=== PATIENT | female | born 1995 | race Two or more races ===

== ENCOUNTER 2018-12-23 22:54 | Emergency (ER) | payer OTHER ==
[~2018-12-23] VITALS: Ht 167.6 cm; Wt 124.3 kg
[~2018-12-23 22:54] MED LIST: CARAFATE SU1 G/10 ML PO; CLEOCIN HCL300 MG PO; ERYTHROMYCIN 2%30 GM TP; INTESTINEX680 MG PO; LO/OVRAL-281 TAB; MACROBID 100 M100 MG PO; PROVENTIL3 ML/2.5 M IH; SEPTRA DS TABLE1 TAB PO; TRAM1TAB98 PO; TUSSIONEX PENNKI5 ML PO; ZITHROMAX500 MG PO; ZOFRAN8 MG PO
== END 2018-12-24 05:55 | disposition home or self-care (01) ==
LOC: ER 22:54
DX: N39.0 Urinary tract infection, site not specified (principal); R10.31 Right lower quadrant pain

== ENCOUNTER 2019-04-19 18:59 | Emergency (ER) | payer OTHER ==
[~2019-04-19] VITALS: Ht 170.2 cm; Wt 117.9 kg
[2019-04-20] MEDS ORDERED: ZOFRAN4 MG PO (03:18)
[2019-04-20] MEDS ORDERED: INTESTINEX680 M1 PO (03:18)
[2019-04-20] MEDS ORDERED: PEPCID40 MG PO (03:18)
== END 2019-04-20 03:27 | disposition home or self-care (01) ==
LOC: ER 18:59
DX: K52.9 Noninfective gastroenteritis and colitis, unspecified (principal)

== ENCOUNTER 2019-05-11 12:27 | Emergency (ER) | payer OTHER ==
[~2019-05-11] VITALS: Ht 170.2 cm; Wt 117.9 kg
[~2019-05-11 12:27] MED LIST changes: +INTESTINEX680 M1 PO; +PEPCID40 MG PO; +ZOFRAN4 MG PO
[2019-05-11] MEDS ORDERED: KETO10TA2 PO (13:46)
[2019-05-11] MEDS ORDERED: FLAGYL500MG PO (13:46)
== END 2019-05-11 13:56 | disposition home or self-care (01) ==
LOC: ER 12:27
DX: L02.11 Cutaneous abscess of neck (principal)

== ENCOUNTER 2019-05-12 00:16 | Inpatient (IN) | payer OTHER ==
[~2019-05-12] VITALS: Ht 170.2 cm; Wt 117.9 kg
[~2019-05-12 00:16] MED LIST changes: +FLAGYL500MG PO; +KETO10TA2 PO
--- NOTE | 2019-05-12 00:25 | NUR ---
FEMINA DE 23 ANOS,ALERTA,ORIENTADA EN [place] ESFERAS,AMBULANDO SIN DIFICULTAD EN COMPANIA DE FAMILIAR. MADRE REFIERE TRAER A HIJA YA QUE ALEXIS QUE TIENE REACCION ADVERSA A MEDICAMENTOS ADMINISTRADOS EN EL KELI DE HOY EN ER, YA QUE VINO POR DOLOR EN RUTH Y BRAZO DERECHO. LE ADMINISTRATRON FLAGYL,TORADOL,ZOFRAN;PACIENTE PRESENTA NAUSEAS,ESCALOSFRIOS,FIEBRE.
--- NOTE | 2019-05-12 01:20 | NUR ---
PTE EVALUADA POR EL DR ROXANA MALLORY [place]. MR Jossie GARCIA ORIENTA SOBRE EL MISMO, LO CUAL REFIERE ENTENDER, REALIZA PRUEBAS DE LABORATORIOS Y ADMINISTRA MEDICAMENTOS CARLY ORDEN MEDICA Y SIGUIENDO MEDIDAS ASEPTICAS.
--- NOTE | 2019-05-12 07:10 | NUR ---
SE RECIBE PACIENTE ALERTA Y ORIENTADA EN [place] ESFERAS, EN [place] CON BARANDAS ELEVADAS. SE OBSERVA VENOPUNCION BRAD DE EDEMA Y ENROJECIMIENTO, PATENTE,HEPARINE LOCK. SE ORIENTA SOBRE CONSULTA CON ,VERBALIZA ENTENDER. SE LAZARUS BAJO OBSERVACION CONTINUA, CON BARANDAS ELEVADAS Y TIMBRE ACCESIBLE.
== END 2019-05-18 12:34 | disposition home or self-care (01) | DRG 603 ==
LOC: ER 00:16 → SEC-K 08:44 → MEDJ 08:44
PROVIDERS: ADMIT Internal Medicine
PROC: BW2FY0Z Computerized Tomography (CT Scan) of Neck using Other Contrast, Unenhanced and Enhanced (ICD-10-PCS; principal; 2019-05-12)
PROC: BT4JZZZ Ultrasonography of Kidneys and Bladder (ICD-10-PCS; 2019-05-17)
PROC: BB24ZZZ Computerized Tomography (CT Scan) of Bilateral Lungs (ICD-10-PCS; 2019-05-17)
DX: L03.221 Cellulitis of neck (principal); N39.0 Urinary tract infection, site not specified; N17.8 Other acute kidney failure; J90 Pleural effusion, not elsewhere classified; K76.0 Fatty (change of) liver, not elsewhere classified; L73.2 Hidradenitis suppurativa; E66.09 Other obesity due to excess calories; K52.89 Other specified noninfective gastroenteritis and colitis; R31.0 Gross hematuria; E28.2 Polycystic ovarian syndrome; R59.0 Localized enlarged lymph nodes

== ENCOUNTER 2022-09-01 19:02 | Emergency (ER) | payer OTHER ==
[~2022-09-01] VITALS: Ht 170.2 cm; Wt 127.0 kg
== END 2022-09-01 21:51 | disposition home or self-care (01) ==
LOC: ER 19:02
DX: G50.0 Trigeminal neuralgia (principal); Z88.2 Allergy status to sulfonamides; Z88.1 Allergy status to other antibiotic agents

== ENCOUNTER 2022-10-28 00:39 | Emergency (ER) | payer OTHER ==
[~2022-10-28] VITALS: Ht 170.2 cm; Wt 136.1 kg
== END 2022-10-28 02:32 | disposition home or self-care (01) ==
LOC: ER 00:39
DX: G50.0 Trigeminal neuralgia (principal); Z88.2 Allergy status to sulfonamides; Z88.1 Allergy status to other antibiotic agents; Z88.6 Allergy status to analgesic agent

== ENCOUNTER 2022-11-15 22:16 | Emergency (ER) | payer OTHER ==
[~2022-11-15] VITALS: Ht 170.2 cm; Wt 124.7 kg
[2022-11-15] MEDS ORDERED: NEURONTIN300 MG PO (22:52)
== END 2022-11-16 00:39 | disposition home or self-care (01) ==
LOC: ER 22:16
DX: G50.0 Trigeminal neuralgia (principal); Z88.2 Allergy status to sulfonamides; Z88.8 Allergy status to other drugs, medicaments and biological substances

== ENCOUNTER 2023-03-08 09:23 | Emergency (ER) | payer OTHER ==
[~2023-03-08] VITALS: Ht 170.2 cm; Wt 131.5 kg
[~2023-03-08 09:23] MED LIST changes: +NEURONTIN300 MG PO
[2023-03-08 12:14] LABS: HEMATOCRIT 29.2 % (36.0-45.00); MEAN CORPUSCULAR HEMOGLOBIN 19.8 pg (27.00-32.0); MEAN CORPUSCULAR HGB CONC 31.1 g/dl (32.0-36.0); PLATELET COUNT 183 K/uL (150-450); RED BLOOD COUNT 4.58 M/uL (4.00-6.00)
[2023-03-08 12:17] LABS: HEMOGLOBIN 9.1 g/dL (12.0-15.00); MEAN CELL VOLUME 63.7 fL (80.00-100.00); RED CELL DISTRIBUTION WIDTH 19.3 % (11.5-14.5)
== END 2023-03-08 13:52 | disposition home or self-care (01) ==
LOC: ER 09:23
PROVIDERS: Emergency Medicine
DX: K21.9 Gastro-esophageal reflux disease without esophagitis (principal); A05.9 Bacterial foodborne intoxication, unspecified; E28.2 Polycystic ovarian syndrome; Z88.2 Allergy status to sulfonamides; Z88.8 Allergy status to other drugs, medicaments and biological substances

== ENCOUNTER 2023-06-11 22:23 | Emergency (ER) | payer OTHER ==
[~2023-06-11] VITALS: Ht 170.2 cm; Wt 144.2 kg
[2023-06-11] MEDS ORDERED: NEURONTIN300 MG (22:41)
[2023-06-11] MEDS ORDERED: CYMBALTA30 MG (22:41)
[2023-06-11] MEDS ORDERED: KETO10TA2 (22:42)
[2023-06-11] MEDS ORDERED: FLEXERIL (22:44)
[2023-06-11] MEDS ORDERED: CYMBALTA30 MG PO (22:55)
[2023-06-11] MEDS ORDERED: KETO10TA2 PO (22:55)
[2023-06-11] MEDS ORDERED: NEURONTIN300 MG PO (22:55)
== END 2023-06-11 23:11 | disposition home or self-care (01) ==
LOC: ER 22:23
DX: G50.0 Trigeminal neuralgia (principal); Z88.2 Allergy status to sulfonamides; Z88.8 Allergy status to other drugs, medicaments and biological substances

== ENCOUNTER 2023-08-27 00:41 | Emergency (ER) | payer OTHER ==
[~2023-08-27] VITALS: Ht 170.2 cm; Wt 117.9 kg
[~2023-08-27 00:41] MED LIST changes: +CYMBALTA30 MG; +CYMBALTA30 MG PO; +FLEXERIL; +KETO10TA2; +NEURONTIN300 MG
[2023-08-27] MEDS ORDERED: MEPERIDINE HCL/PF 50 MG/ML VIAL IM STA (02:33)
[2023-08-27] MEDS ORDERED: RINGERS SOLUTION,LACTATED 1,000 ML IV ONE (02:45)
[2023-08-27 03:22] LABS: HEMATOCRIT 30.6 % (36.0-45.00); MEAN CELL VOLUME 71.1 fL (80.00-100.00); MEAN CORPUSCULAR HEMOGLOBIN 22.3 pg (27.00-32.0); MEAN CORPUSCULAR HGB CONC 31.3 g/dl (32.0-36.0); PLATELET COUNT 201 K/uL (150-450); RED CELL DISTRIBUTION WIDTH 17.5 % (11.5-14.5)
[2023-08-27 03:24] LABS: HEMOGLOBIN 9.6 g/dL (12.0-15.00)
[2023-08-27 03:37] LABS: INR 0.99; PARTIAL THROMBOPLASTIN TIME 28.6 SECONDS (22.0-34.0); PROTHROMBIN TIME 10.4 SECONDS (9.0-11.5)
[2023-08-27 04:04] LABS: ALBUMIN 3.5 gm/dL (3.4-5.0); ALKALINE PHOSPHATASE 63 U/L (50-136); ALT/SGPT 31 U/L (12-78); ANION GAP 7 (10.0-20.0); AST/SGOT 30 U/L (15-37); BILIRUBIN TOTAL 0.53 mg/dL (0.3-1.2); BLOOD UREA NITROGEN 9 mg/dL (7-18); BUN CREA RATIO 13 (7.0-25.0); CALCIUM 8.4 mg/dL (8.5-10.1); CARBON DIOXIDE 28 mEq/L (21-32); CHLORIDE 107 mmol/L (98-107); CREATININE SERUM 0.71 mg/dL (0.55-1.02); GFR 98.75; GLOBULINA 3.7 G/DL (2.4-3.5); GLUCOSE FASTING 96 mg/dL (65-100); OSMOLALITY SERUM 274 MOSM/KG (275-295); POTASSIUM 4.07 mEq/L (3.5-5.1); SODIUM 138 mmol/L (136-145); TOTAL PROTEIN 7.2 gm/dL (6.4-8.2)
[2023-08-27 04:08] LABS: HCG QUANTITATIVE < 1 mUI/mL (1-3)
[2023-08-27 04:45] LABS: URINE APPEARANCE Cloudy; URINE BILIRRUBIN Negative (NEGATIVE); URINE BLOOD Large; URINE COLOR Orange; URINE GLUCOSE Negative (NEGATIVE); URINE LEUKOCYTE Small; URINE NITRATE Negative
[2023-08-27 04:49] LABS: URINE BACTERIA 2829.9 uL (0.0-1933); URINE EPITHELIAL CELLS 54.2 uL (0.0-38.8); URINE RBC 3929.9 uL (0.0-20.8); URINE WBC 52.1 uL (0.0-23.2)
[2023-08-27 05:28] LABS: URINE PROTEIN 100 (NEGATIVE)
[2023-08-27] MEDS ORDERED: KETOROLAC TROMETHAMINE 30 MG VIAL IV STA (06:25)
[2023-08-27] MEDS ORDERED: CIPROFLOXACIN IN 5 % DEXTROSE 400 MG/200 ML PIGGYBAG IV STA (06:26)
[2023-08-27] MEDS ORDERED: ONDANSETRON HCL 2 MG/ML VIAL IV ONE (07:30)
== END 2023-08-27 09:59 | disposition home or self-care (01) ==
LOC: ER 00:41
PROVIDERS: General Practice
DX: N93.8 Other specified abnormal uterine and vaginal bleeding (principal); Z88.2 Allergy status to sulfonamides; E28.2 Polycystic ovarian syndrome

== ENCOUNTER 2024-02-29 08:36 | Emergency (ER) | payer OTHER ==
[~2024-02-29] VITALS: Ht 170.2 cm; Wt 145.1 kg
[~2024-02-29 08:36] MED LIST changes: +MELOXICAM15 MG PO; +NORFLEX100MG PO
[2024-02-29] MEDS ORDERED: DEXAMETHASONE SODIUM PHOSPHATE 4 MG/ML VIAL IM ONE (09:45)
[2024-02-29] MEDS ORDERED: DEXAMETHASONE SODIUM PHOSPHATE 4 MG/ML VIAL ONE (09:48)
[2024-02-29] MEDS ORDERED: MEDROLPACK PO (15:12)
== END 2024-02-29 15:36 | disposition home or self-care (01) ==
LOC: ER 08:37
DX: R20.0 Anesthesia of skin (principal); M54.89 Other dorsalgia; Z88.2 Allergy status to sulfonamides; Z88.8 Allergy status to other drugs, medicaments and biological substances; E03.9 Hypothyroidism, unspecified

== ENCOUNTER 2024-06-25 23:06 | Emergency (ER) | payer OTHER ==
[~2024-06-25] VITALS: Ht 170.2 cm; Wt 142.9 kg
[~2024-06-25 23:06] MED LIST changes: +MEDROLPACK PO
[2024-06-26] MEDS ORDERED: 0.9 % SODIUM CHLORIDE 1,000 ML IV SCH (00:45)
[2024-06-26] MEDS ORDERED: CIPROFLOXACIN IN 5 % DEXTROSE 400 MG/200 ML PIGGYBAG IV ONE ×2 (00:45→00:53)
[2024-06-26 01:51] LABS: HEMATOCRIT 35.3 % (36.0-45.00); HEMOGLOBIN 11.3 g/dL (12.0-15.00); MEAN CELL VOLUME 70.6 fL (80.00-100.00); MEAN CORPUSCULAR HEMOGLOBIN 22.6 pg (27.00-32.0); PLATELET COUNT 201 K/uL (150-450); RED CELL DISTRIBUTION WIDTH 17.5 % (11.5-14.5)
[2024-06-26 02:13] LABS: ALBUMIN 3.9 gm/dL (3.4-5.0); BILIRUBIN TOTAL 1.09 mg/dL (0.3-1.2); CREATININE SERUM 0.82 mg/dL (0.55-1.02); GFR 83.01; GLOBULINA 4.3 G/DL (2.4-3.5); POTASSIUM 3.84 mEq/L (3.5-5.1); TOTAL PROTEIN 8.2 gm/dL (6.4-8.2)
[2024-06-26 02:55] LABS: PH,URINE 6.5 (5.0-8.0); URINE APPEARANCE Clear; URINE BILIRRUBIN Negative (NEGATIVE); URINE BLOOD Large; URINE COLOR Yellow; URINE GLUCOSE Negative (NEGATIVE); URINE KETONE Negative (NEGATIVE); URINE LEUKOCYTE Small; URINE NITRATE Negative; URINE PROTEIN 30 (NEGATIVE)
[2024-06-26 02:59] LABS: URINE BACTERIA 3537.2 uL (0.0-1933); URINE EPITHELIAL CELLS 19.4 uL (0.0-38.8); URINE RBC 119.4 uL (0.0-20.8); URINE WBC 125.8 uL (0.0-23.2)
[2024-06-26 03:00] LABS: URINE CAST 0.29 uL (0.0-1.40)
[2024-06-26] MEDS ORDERED: CIPRO500 MG PO (03:22)
== END 2024-06-26 04:25 | disposition home or self-care (01) ==
LOC: ER 23:08
PROVIDERS: General Practice
DX: N39.0 Urinary tract infection, site not specified (principal); R10.9 Unspecified abdominal pain; Z88.1 Allergy status to other antibiotic agents; Z88.2 Allergy status to sulfonamides; Z88.6 Allergy status to analgesic agent

== ENCOUNTER 2024-10-06 17:33 | Emergency (ER) | payer OTHER ==
[~2024-10-06] VITALS: Ht 170.2 cm; Wt 145.1 kg
[~2024-10-06 17:33] MED LIST changes: +CIPRO500 MG PO
[2024-10-06 18:50] LABS: HEMATOCRIT 31.5 % (36.0-45.00); HEMOGLOBIN 9.9 g/dL (12.0-15.00); MEAN CELL VOLUME 69.8 fL (80.00-100.00); MEAN CORPUSCULAR HEMOGLOBIN 21.9 pg (27.00-32.0); MEAN CORPUSCULAR HGB CONC 31.4 g/dl (32.0-36.0); PLATELET COUNT 215 K/uL (150-450); RED BLOOD COUNT 4.51 M/uL (4.00-6.00); RED CELL DISTRIBUTION WIDTH 16.5 % (11.5-14.5)
[2024-10-06 19:12] LABS: INR 1.04; PROTHROMBIN TIME 11.3 SECONDS (9.0-11.5)
[2024-10-06 19:20] LABS: ALBUMIN 3.7 gm/dL (3.4-5.0); ALKALINE PHOSPHATASE 66 U/L (50-136); ALT/SGPT 37 U/L (12-78); ANION GAP 9 (10.0-20.0); AST/SGOT 28 U/L (15-37); BILIRUBIN TOTAL 0.96 mg/dL (0.3-1.2); BLOOD UREA NITROGEN 11 mg/dL (7-18); BUN CREA RATIO 14 (7.0-25.0); CALCIUM 8.7 mg/dL (8.5-10.1); CARBON DIOXIDE 29 mEq/L (21-32); CHLORIDE 110 mmol/L (98-107); CREATININE SERUM 0.76 mg/dL (0.55-1.02); GFR 90.62; GLOBULINA 3.4 G/DL (2.4-3.5); GLUCOSE FASTING 93 mg/dL (65-100); OSMOLALITY SERUM 286 MOSM/KG (275-295); POTASSIUM 4.11 mEq/L (3.5-5.1); SODIUM 144 mmol/L (136-145); TOTAL PROTEIN 7.1 gm/dL (6.4-8.2)
[2024-10-06 19:34] LABS: HCG QUANTITATIVE < 1 mUI/mL (1-3)
[2024-10-06] MEDS ORDERED: FUSION PLUS CA1 EACH PO (20:59)
[2024-10-06 21:02] LABS: URINE APPEARANCE Turbid; URINE BILIRRUBIN Small (NEGATIVE); URINE BLOOD Moderate; URINE COLOR Red; URINE GLUCOSE Negative (NEGATIVE); URINE KETONE Negative (NEGATIVE); URINE LEUKOCYTE Moderate; URINE NITRATE Positive; URINE UROBILINOGEN 0.2 E.U./dl
[2024-10-06 21:05] LABS: URINE BACTERIA 1763.7 uL (0.0-1933); URINE EPITHELIAL CELLS 7.5 uL (0.0-38.8); URINE WBC 232.2 uL (0.0-23.2)
[2024-10-06 21:18] LABS: URINE PROTEIN 100 (NEGATIVE); URINE RBC > 10558.9 uL (0.0-20.8)
== END 2024-10-06 21:06 | disposition home or self-care (01) ==
LOC: ER 17:35
PROVIDERS: General Practice
DX: N93.9 Abnormal uterine and vaginal bleeding, unspecified (principal); Z88.1 Allergy status to other antibiotic agents; Z88.2 Allergy status to sulfonamides; Z88.6 Allergy status to analgesic agent

== ENCOUNTER 2024-10-09 19:10 | Emergency (ER) | payer OTHER ==
[~2024-10-09] VITALS: Ht 170.2 cm; Wt 145.1 kg
[~2024-10-09 19:10] MED LIST changes: +FUSION PLUS CA1 EACH PO
[2024-10-09] MEDS ORDERED: PROVERA2.5 MG PO (19:37)
[2024-10-09 21:46] LABS: HEMATOCRIT 29.8 % (36.0-45.00); HEMOGLOBIN 9.4 g/dL (12.0-15.00); MEAN CELL VOLUME 68.9 fL (80.00-100.00); MEAN CORPUSCULAR HEMOGLOBIN 21.8 pg (27.00-32.0); MEAN CORPUSCULAR HGB CONC 31.6 g/dl (32.0-36.0); PLATELET COUNT 235 K/uL (150-450); RED BLOOD COUNT 4.33 M/uL (4.00-6.00)
[2024-10-09] MEDS ORDERED: SPRINTEC 28 DA1 EACH PO (21:56)
[2024-10-09 22:05] LABS: INR 0.97; PARTIAL THROMBOPLASTIN TIME 24.6 SECONDS (22.0-34.0); PROTHROMBIN TIME 10.6 SECONDS (9.0-11.5)
[2024-10-09 22:11] LABS: ALBUMIN 3.7 gm/dL (3.4-5.0); ALKALINE PHOSPHATASE 77 U/L (50-136); ALT/SGPT 30 U/L (12-78); ANION GAP 10 (10.0-20.0); AST/SGOT 30 U/L (15-37); BILIRUBIN TOTAL 0.52 mg/dL (0.3-1.2); BLOOD UREA NITROGEN 7 mg/dL (7-18); BUN CREA RATIO 7 (7.0-25.0); CALCIUM 8.6 mg/dL (8.5-10.1); CARBON DIOXIDE 28 mEq/L (21-32); CHLORIDE 108 mmol/L (98-107); CREATININE SERUM 1.01 mg/dL (0.55-1.02); GFR 65.26; GLOBULINA 3.9 G/DL (2.4-3.5); GLUCOSE FASTING 99 mg/dL (65-100); OSMOLALITY SERUM 281 MOSM/KG (275-295); POTASSIUM 4.22 mEq/L (3.5-5.1); SODIUM 142 mmol/L (136-145); TOTAL PROTEIN 7.6 gm/dL (6.4-8.2)
[2024-10-09] MEDS ORDERED: TRAMADOL HCL 50 MG TABLET PO ONE (22:15)
[2024-10-09 22:17] LABS: HCG QUANTITATIVE < 1 mUI/mL (1-3)
== END 2024-10-09 22:12 | disposition home or self-care (01) ==
LOC: ER 19:11
PROVIDERS: General Practice
DX: E28.2 Polycystic ovarian syndrome (principal); Z88.2 Allergy status to sulfonamides; Z88.8 Allergy status to other drugs, medicaments and biological substances; Z09 Encounter for follow-up examination after completed treatment for conditions other than malignant neoplasm

== ENCOUNTER 2024-11-04 16:05 | Inpatient (IN) | payer OTHER ==
[~2024-11-04] VITALS: Ht 170.2 cm; Wt 145.1 kg
[~2024-11-04 16:05] MED LIST changes: +PROVERA2.5 MG PO; +SPRINTEC 28 DA1 EACH PO
[2024-11-04] MEDS ORDERED: LEVOTHYROXINE25 MCG PO (16:22)
[2024-11-04] MEDS ORDERED: PROVERA2.5 MG (16:22)
--- NOTE | 2024-11-04 16:23 | NUR ---
PTE ALERTA Y ORIENTADA X3 REFIERE TENER [place] VAGINAL HACE 3 MESES, REFIERE TAMBIEN VOMITOS HACE 1 SEMANA CON 2 VOMITOS TAYLOR Y DOLOR DE MANGO. SE ESTEPHANIA SV Y SE UBICA
--- NOTE | 2024-11-04 16:45 | NUR ---
SE ORIENTA PTE SOBRE [place] MEDICO Y REFIERE ENTENDER Y ACEPTAR. SE COLECTAN MUESTRAS DE LAB Y SE NOTIFICA XRAY. SE REALIZA EKG Y SE PRESENTA A MD OSMAR
[2024-11-04 16:56] LABS: BASO % 0.4 % (0.1-1.2); EOS # 0.05 (0.04-0.54); EOS % 0.9 % (0.7-7.0); LYMPH # 1.92 (1.18-3.74); MEAN CORPUSCULAR HEMOGLOBIN 19.8 pg (25.6-32.2); MONO # 0.44 (0.24-0.82); MONO % 7.8 % (4.7-12.5); NEUT # 3.21 (1.56-6.13); NEUT % 56.7 % (34.0-71.1); PLATELET COUNT 279 K/uL (163-369); RED BLOOD COUNT 3.54 M/uL (3.93-5.22); RED CELL DISTRIBUTION WIDTH 17.2 % (11.6-14.4)
[2024-11-04 17:01] LABS: HEMATOCRIT 24.7 % (34.1-44.9)
[2024-11-04 18:44] LABS: ALBUMIN 3.7 gm/dL (3.4-5.0); ALKALINE PHOSPHATASE 62 U/L (50-136); ALT/SGPT 21 U/L (12-78); ANION GAP 8 (10.0-20.0); AST/SGOT 12 U/L (15-37); BILIRUBIN TOTAL 0.76 mg/dL (0.3-1.2); BLOOD UREA NITROGEN 11 mg/dL (7-18); BUN CREA RATIO 15 (7.0-25.0); CALCIUM 8.4 mg/dL (8.5-10.1); CARBON DIOXIDE 27 mEq/L (21-32); CHLORIDE 111 mmol/L (98-107); CREATININE SERUM 0.74 mg/dL (0.55-1.02); GFR 93.45; GLOBULINA 3.7 G/DL (2.4-3.5); GLUCOSE FASTING 93 mg/dL (65-100); OSMOLALITY SERUM 282 MOSM/KG (275-295); SODIUM 142 mmol/L (136-145); TOTAL PROTEIN 7.4 gm/dL (6.4-8.2)
[2024-11-04 18:54] LABS: HCG QUANTITATIVE < 1 mUI/mL (1-3)
[2024-11-04] MEDS ORDERED: ESTROGENS, CONJUGATED 25 MG VIAL IV ONE (19:15)
[2024-11-04 20:06] LABS: INR 1.1; PROTHROMBIN TIME 11.9 SECONDS (9.0-11.5)
[2024-11-05 00:41] VITALS: BP 131/82; O2SAT 100
[2024-11-05 02:16] VITALS: BP 130/74
[2024-11-05 08:18] VITALS: BP 143/77
[2024-11-05] MEDS ORDERED: ESTROGENS, CONJUGATED 25 MG in DEXTROSE 5 % IN WATER 50 ML IV SCH (11:46)
[2024-11-05] MEDS ORDERED: FAMOtidine 20 MG TABLET PO SCH (11:56)
[2024-11-05 16:11] VITALS: BP 132/58
[2024-11-05] MEDS ORDERED: ACETAMINOPHEN 500 MG GEL..CAP PO PRN (20:22)
[2024-11-05 23:27] LABS: BASO % 0.4 % (0.1-1.2); EOS # 0.11 (0.04-0.54); EOS % 1.5 % (0.7-7.0); HEMATOCRIT 29.9 % (34.1-44.9); HEMOGLOBIN 9.1 g/dL (11.2-15.7); LYMPH # 2.88 (1.18-3.74); LYMPH % 38.7 % (19.3-53.1); MEAN CORPUSCULAR HEMOGLOBIN 22.1 pg (25.6-32.2); MONO % 8.1 % (4.7-12.5); NEUT # 3.82 (1.56-6.13); NEUT % 51.2 % (34.0-71.1); PLATELET COUNT 266 K/uL (163-369); RED BLOOD COUNT 4.11 M/uL (3.93-5.22); RED CELL DISTRIBUTION WIDTH 19.3 % (11.6-14.4)
[2024-11-06 01:23] VITALS: BP 114/70
[2024-11-06 08:02] VITALS: BP 137/74
[2024-11-06] MEDS ORDERED: 0.9 % SODIUM CHLORIDE 1,000 ML IV SCH (12:30)
[2024-11-06] MEDS ORDERED: SOD FERRIC GLUC COMPLX/SUCROSE 125 MG in 0.9 % SODIUM CHLORIDE 100 ML IV SCH (13:40)
[2024-11-06 15:54] VITALS: BP 120/68
[2024-11-07 01:09] VITALS: BP 114/75
[2024-11-07 08:16] VITALS: BP 100/63; O2SAT 99
[2024-11-08 00:37] VITALS: BP 121/81
[2024-11-08 08:00] VITALS: BP 117/67
[2024-11-08] MEDS ORDERED: DEXTROSE 5%-WATER 50ML IV.SOLN ONE (09:19)
[2024-11-08 15:50] VITALS: BP 118/78
[2024-11-09 00:25] VITALS: BP 140/81
[2024-11-09 04:58] VITALS: BP 121/74
[2024-11-09] MEDS ORDERED: FF) NORGESTREL-ETHINYL ESTRADIOL TAB PO SCH (09:01)
[2024-11-09] MEDS ORDERED: IRON/V.C/V.B12/FOLIC A/VIT. E 1 CAPL CAPLET PO SCH (09:02)
[2024-11-09 09:05] VITALS: BP 115/76; O2SAT 99
[2024-11-09] MEDS ORDERED: Ferro-Plex CAPLET PO (13:25)
[2024-11-09] MEDS ORDERED: LOW-OGESTREL-21 EACH PO (13:25)
== END 2024-11-09 15:04 | disposition home or self-care (01) | DRG 761 ==
LOC: ER 16:05 → OB/GYN 22:18
PROVIDERS: General Practice; ADMIT Obstetrics & Gynecology; ATTEND Obstetrics & Gynecology
PROC: BU4CZZZ Ultrasonography of Uterus and Ovaries (ICD-10-PCS; principal; 2024-11-04)
PROC: 30233N1 Transfusion of Nonautologous Red Blood Cells into Peripheral Vein, Percutaneous Approach (ICD-10-PCS; 2024-11-05)
DX: N93.9 Abnormal uterine and vaginal bleeding, unspecified (principal); D64.9 Anemia, unspecified; N92.1 Excessive and frequent menstruation with irregular cycle